=== PATIENT | female | born 1995 | race Caucasian/White ===

== ENCOUNTER → 2016-09-27 | Outpatient (CLI) | payer BC ==
[2016-09-27 14:22] LABS: ABSOLUTE EOSINOPHILS # (AUTO) 0.5 10^3/uL (0.0-0.6); ABSOLUTE LYMPHOCYTES (AUTO) 1.8 10^3/uL (0.5-4.7); ABSOLUTE MONOCYTES (AUTO) 0.8 10^3/uL (0.1-1.4); ABSOLUTE NEUT (AUTO) 5.1 10^3/uL (1.7-8.2); BASOPHILS % (AUTO) 0.5 % (0-2); EOSINOPHILS % (AUTO) 6.3 % (0-6); HEMATOCRIT 39.5 % (36.0-47.0); HEMOGLOBIN 13.3 g/dL (12.0-15.5); HGB HCT DIFFERENCE 0.4; LYMPHOCYTES % (AUTO) 22.1 % (13-45); MEAN CORPUSCULAR HEMOGLOBIN 27.7 pg (27.0-33.4); MEAN CORPUSCULAR HGB CONC 33.7 g/dL (32.0-36.0); MEAN CORPUSCULAR VOLUME 82 fl (80-97); MONOCYTES % (AUTO) 9.1 % (3-13); RED BLOOD COUNT 4.81 10^6/uL (3.72-5.28); RED CELL DISTRIBUTION WIDTH 13.4 % (11.5-14.0); WHITE BLOOD COUNT 8.3 10^3/uL (4.0-10.5)
--- NOTE | 2016-09-27 14:26 | RADIOLOGY REPORT (SQ) ---
EXAM DESCRIPTION: CHEST PA/LATERAL COMPLETED DATE/TIME: 09/27/2016 2:14 pm REASON FOR STUDY: COUGH COMPARISON: None. EXAM PARAMETERS: NUMBER OF VIEWS: two views TECHNIQUE: Digital Frontal and Lateral radiographic views of the chest acquired. RADIATION DOSE: NA LIMITATIONS: none FINDINGS: LUNGS AND PLEURA: No opacities, masses or pneumothorax. No pleural effusion. MEDIASTINUM AND HILAR STRUCTURES: No masses or contour abnormalities. HEART AND VASCULAR STRUCTURES: Heart normal size. No evidence for failure. BONES: No acute findings. HARDWARE: None in the chest. OTHER: No other significant finding. IMPRESSION: NO SIGNIFICANT RADIOGRAPHIC FINDING IN THE CHEST. TECHNICAL DOCUMENTATION: JOB ID: [id number] [employer]- All Rights Reserved
[2016-09-27 14:50] LABS: ALANINE AMINOTRANSFERASE 26 U/L (9-52); ALBUMIN 4.3 g/dL (3.5-5.0); ALKALINE PHOSPHATASE 80 U/L (38-126); ANION GAP 13 (5-19); ASPARTATE AMINO TRANSFERASE 19 U/L (14-36); BILIRUBIN,DIRECT 0.4 mg/dL (0.0-0.4); BILIRUBIN,TOTAL 0.8 mg/dL (0.2-1.3); BLOOD UREA NITROGEN 10 mg/dL (7-20); CALCIUM 9.3 mg/dL (8.4-10.2); CARBON DIOXIDE 27 mmol/L (22-30); CHLORIDE 102 mmol/L (98-107); CREATININE RESULT 0.68 mg/dL (0.52-1.25); GLUCOSE 87 mg/dL (75-110); POTASSIUM 4.1 mmol/L (3.6-5.0); SODIUM 141.6 mmol/L (137-145); TOTAL PROTEIN 7.3 g/dL (6.3-8.2)
--- NOTE | 2016-09-27 20:03 | EKG REPORT ---
SEVERITY:- NORMAL ECG - SINUS RHYTHM : Confirmed by: Elliot Sorensen MD 27-Sep-2016 20:03:12
== END ==
LOC: OD 13:44
PROVIDERS: ATTEND Nurse Practitioner Family
DX: R42 Dizziness and giddiness (principal); R05 Cough; R63.4 Abnormal weight loss
CPT/HCPCS: 36415; 71020; 80053; 84443; 85025; 93005; 93010

== ENCOUNTER 2017-07-09 20:10 | Outpatient (CLI) | payer BC ==
[2017-07-09 21:09] LABS: APPEARANCE,URINE SLIGHTLY-CLOUDY; BILIRUBIN,URINE NEGATIVE (NEGATIVE); COLOR,URINE STRAW; GLUCOSE, URINE NEGATIVE (NEGATIVE); KETONES,URINE NEGATIVE (NEGATIVE); LEUKOCYTE ESTERASE,URINE TRACE (NEGATIVE); NITRITE,URINE NEGATIVE (NEGATIVE); PROTEIN,URINE NEGATIVE (NEGATIVE); URINE SPECIFIC GRAVITY 1.004; UROBILINOGEN,URINE NEGATIVE mg/dL (<2.0)
[2017-07-09 21:25] LABS: URINE AMPHETAMINES SCREEN NEGATIVE; URINE BARBITURATES SCREEN NEGATIVE; URINE BENZODIAZEPINES SCREEN NEGATIVE; URINE COCAINE SCREEN NEGATIVE; URINE MARIJUANA (THC) SCREEN NEGATIVE; URINE METHADONE SCREEN NEGATIVE
[2017-07-09 21:41] LABS: URINE PHENCYCLIDINE SCREEN NEGATIVE
== END 2017-07-09 21:31 | disposition home or self-care (01) ==
LOC: LC 20:10
PROVIDERS: ATTEND Obstetrics & Gynecology
PROC: 4A1HXCZ Monitoring of Products of Conception, Cardiac Rate, External Approach (ICD-10-PCS; principal; 2017-07-09)
DX: O26.893 Other specified pregnancy related conditions, third trimester (principal); R10.2 Pelvic and perineal pain; Z3A.28 28 weeks gestation of pregnancy
CPT/HCPCS: 80307; 81001

== ENCOUNTER 2017-10-03 11:06 | Inpatient (IN) | payer BC ==
[2017-10-03] MEDS ORDERED: RINGERS SOLUTION,LACTATED 1,000 ML IV ONE (11:10)
[2017-10-03] MEDS ORDERED: OXYTOCIN/NORMAL SALINE 20 UNIT/1,000 ML RTUINJ IV PRN ×2 (11:12→13:39)
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
[2017-10-03] MEDS ORDERED: OXYTOCIN/NORMAL SALINE 20 UNIT/1,000 ML RTUINJ ONE (11:43)
[2017-10-03 12:03] LABS: ABSOLUTE EOSINOPHILS # (AUTO) 0.1 10^3/uL (0.0-0.6); ABSOLUTE LYMPHOCYTES (AUTO) 2.2 10^3/uL (0.5-4.7); ABSOLUTE MONOCYTES (AUTO) 0.8 10^3/uL (0.1-1.4); BASOPHILS % (AUTO) 0.2 % (0-2); EOSINOPHILS % (AUTO) 1.1 % (0-6); HEMATOCRIT 36.2 % (36.0-47.0); HEMOGLOBIN 12.1 g/dL (12.0-15.5); LYMPHOCYTES % (AUTO) 16.9 % (13-45); MEAN CORPUSCULAR HEMOGLOBIN 26.6 pg (27.0-33.4); MEAN CORPUSCULAR HGB CONC 33.5 g/dL (32.0-36.0); MEAN CORPUSCULAR VOLUME 79 fl (80-97); MONOCYTES % (AUTO) 5.8 % (3-13); PLATELET COUNT 189 10^3/uL (150-450); RED BLOOD COUNT 4.56 10^6/uL (3.72-5.28); RED CELL DISTRIBUTION WIDTH 13.9 % (11.5-14.0); TOTAL CELLS COUNTED % (AUTO) 100 %; WHITE BLOOD COUNT 13.2 10^3/uL (4.0-10.5)
[2017-10-03 12:09] LABS: APPEARANCE,URINE CLEAR; BILIRUBIN,URINE NEGATIVE (NEGATIVE); COLOR,URINE YELLOW; GLUCOSE, URINE NEGATIVE (NEGATIVE); KETONES,URINE NEGATIVE (NEGATIVE); LEUKOCYTE ESTERASE,URINE TRACE (NEGATIVE); NITRITE,URINE NEGATIVE (NEGATIVE); PROTEIN,URINE NEGATIVE (NEGATIVE); URINE SPECIFIC GRAVITY 1.009; UROBILINOGEN,URINE NEGATIVE mg/dL (<2.0)
[2017-10-03 12:26] LABS: URINE AMPHETAMINES SCREEN NEGATIVE; URINE BARBITURATES SCREEN NEGATIVE; URINE BENZODIAZEPINES SCREEN NEGATIVE; URINE COCAINE SCREEN NEGATIVE; URINE MARIJUANA (THC) SCREEN NEGATIVE; URINE METHADONE SCREEN NEGATIVE; URINE PHENCYCLIDINE SCREEN NEGATIVE
[2017-10-03] MEDS ORDERED: LIDOCAINE 1% INJ-PF (10 MG/ML) 30 ML SDV ONE (12:39)
[2017-10-03] MEDS ORDERED: MISOPROSTOL 0.2 MG TABLET ONE (12:39)
[2017-10-03] MEDS ORDERED: MORPHINE SULFATE 10 MG/ML INJ ONE (13:29)
[2017-10-03] MEDS ORDERED: ZOLPIDEM TARTRATE 5 MG TABLET PO PRN (13:39)
[2017-10-03] MEDS ORDERED: MEASLES,MUMPS&RUBELLA VACC/PF 0.5 ML VIAL SUBCUT PRN ×2 (13:39→15:00)
[2017-10-03] MEDS ORDERED: BENZOCAINE/MENTHOL AEROSOL SPRAY 56 ML TOP PRN (13:39)
[2017-10-03] MEDS ORDERED: DIPH/PERTUSS(ACELL)/TETANUS VAC/PF 0.5 ML SYR (>=10YO) IM PRN ×2 (13:39→15:00)
[2017-10-03] MEDS ORDERED: DIBUCAINE 1% OINTMENT 28 GM TP PRN (13:39)
[2017-10-03] MEDS ORDERED: ACETAMINOPHEN WITH CODEINE #3 TABLET PO PRN ×2 (13:39)
--- NOTE | 2017-10-03 14:03 | L&D Progress Notes ---
PROGRESS NOTES Datetime Report Generated by CPN: 10/03/2017 14:03 PROGRESS NOTE Comment: called to bedside to evaluate bleeding, vagina inspected no lacerations noted, small placetnal fragments manually removed good hemostasis after will give dose of unaysn and monitor VAGINAL EXAM Dilatation: 6 Effacement: 80 Station: 1 Contractions: irreg. MEMBRANES Membranes: Intact FETUS A Estimated Weight (gm): 3300 Presentation: Vertex SIGNATURE SIGNATURE: [id number] SIGNATURE: [id number] Assignment: Greyson Abraham MD Signature: with User ID: [email or web address] : with User ID: [email or web address]
[2017-10-03] MEDS ORDERED: AMPICILLIN SOD/SULBACTAM 3 GM VIAL IV ONE (14:08)
[2017-10-03] MEDS ORDERED: MORPHINE SULFATE 10 MG/ML INJ IV ONE (14:09)
[2017-10-03] MEDS ORDERED: AMPICILLIN SOD/SULBACTAM 3 GM VIAL ONE (14:13)
--- NOTE | 2017-10-03 16:03 | Delivery Summary ---
Del Sum A-C Datetime Report Generated by CPN: 10/03/2017 16:03 DELIVERY PERSONNEL DELIVERY PERSONNEL: [id number] Delivery Doctor:: Ariana Snowden CNM Labor and Delivery Nurse:: Chandni Huynh RN Labor and Delivery Nurse:: ERASMO Goldman Eyeglass Maker/VP PRODUCT MANAGEMENT: Hilary Lynch, ST Additional Personnel: : Steve Castillo RN MATERNAL INFORMATION Delivery Anesthesia: None Medications After Delivery: Pitocin Bolus-Please Comment; Pitocin Drip 20 Units/1000ml NSS; Other-Please Comment Meds After Delivery Comment: 1000 mcg cytotec AR Estimated Blood Loss (ml): 548 Maternal Complications: Precipitous Labor (<3hrs) Provider Comments: of viable female infant, head, shoulders, and body delivered without difficulty, infant with spontaneous cry and respirations, to maternal abdomen, cord clamped X2 and infant cut free after 2 min delay, cord avulsed with very minimal traction, placetna manually removed, vagina and perineum inspected, 1st degree perineal laceration repaired as above, heavier bleeding, 1000mcg rectal cytotec given, better hemostasis acheived with external fundal massage and IV pitocin, mother and in stable condition, routine pp care LABOR SUMMARY EDC: 10/02/2017 00:00 No. Babies in Womb: 1 Attempted: No Labor Anesthesia: None LABOR INFORMATION Reason for Induction: Not Applicable Onset of Labor: 10/03/2017 13:00 Complete Dilatation: 10/03/2017 13:04 Other Ripening Agents: 5-7 Oxytocin: Augmentation Group B Beta Strep: Negative Steroids Given: None Reason Steroids Not Administered: Not Applicable MEMBRANES Membranes Rupture Method: Artificial Rupture of Membranes: 10/03/2017 12:05 Length of Rupture (hr): 1.05 Amniotic Fluid Color: Clear Amniotic Fluid Amount: Small Amniotic Fluid Odor: Normal STAGES OF LABOR Stage 1 hr: 0 Stage 1 min: 4 Stage 2 hr: 0 Stage 2 min: 4 Stage 3 hr: 0 Stage 3 min: 6 Total Time in Labor hr: 0 Total Time in Labor min: 14 VAGINAL DELIVERY Episiotomy: None Laceration #1: Perineal Laceration Extension #1: First Degree Laceration Repair: Yes Laceration Repair Note: repaired with lidocaine using 2-0 chromic Sponge Count Correct: N/A Sharps Count Correct: Yes CSECTION DELIVERY Primary Indication: N/A Secondary Indication: N/A CSection Incidence: N/A Labor: N/A Elective: N/A CSection Incision: N/A BABY A INFORMATION Infant Delivery Date/Time: 10/03/2017 13:08 Method of Delivery: Vaginal Born in Route : No : N/A Forceps: N/A Vacuum Extraction: N/A Shoulder Dystocia : No PRESENTATION/POSITION BABY A Presentation: Cephalic Cephalic Presentation: Vertex Vertex Position: Left Occipital Anterior Breech Presentation: N/A PLACENTA INFORMATION BABY A Placenta Delivery Time : 10/03/2017 13:14 Placenta Method of Delivery: Manual Removal Placenta Status: Delivered SCORES BABY A Heart Rate 1 min: >100 bpm Resp Effort 1 min: Good Cry Reflex Irritability 1 min: Cough or Sneeze or Pulls Away Muscle Tone 1 min: Active Motion Color 1 min: Blue/Pale Resuscitation Effort 1 min: Tactile Stimulation SCORE 1 MIN: 8 Heart Rate 5 min: >100 bpm Resp Effort 5 min: Good Cry Reflex Irritability 5 min: Cough or Sneeze or Pulls Away Muscle Tone 5 min: Active Motion Color 5 min: Body [place], Extremities Blue Resuscitation Effort 5 min: N/A SCORE 5 MIN: 9 Resuscitation Effort 10 min: N/A INFORMATION BABY A Gestational Age at Delivery: 40.1 Gestational Status: Full Term- 39- 40.6 Weeks Outcome : Liveborn Infant Condition : Stable Sex: Female IDENTIFICATION BABY A Verification Date/Time: 10/03/2017 13:34 ID Band Number: [id number] Mother's Name Verified: Yes Infant RN Verifying Infant: A Hickman RN R Alfred RN WEIGHT/LENGTH BABY A Birthweight (gm): 3195 Infant Weight (lb): 7 Weight (oz): 1 Infant Length (in): 19.00 Infant Length (cm): 48.26 CORD INFORMATION BABY A No. Cord Vessels: 3 Nuchal Cord : N/A Cord Blood Taken: Yes-For Eval (Mom's Blood Type - or O+) Infant Suction: Mouth; Nose ASSESSMENT BABY A Infant Complications: None Physical Findings at Delivery: Within Normal Limits Infant Respirations: Appears Normal Skin to Skin: Yes Skin to Skin Time (min): 60 Examination Proctor/ALS Called : No Infant Care By: K Dave RNC/J Anna RN Transferred To: Remains with Mother BABY B INFORMATION : N/A SIGNATURES Assignment: Greyson Abraham MD Signature: with User ID: [email or web address] : with User ID: [email or web address]
[2017-10-03] MEDS: IBUPROFEN 800 MG TABLET PO SCH ×2 (17:44→21:30)
[2017-10-03] MEDS: FERROUS SULFATE 325 MG TABLET PO SCH (18:34)
[2017-10-03] MEDS: DOCUSATE SODIUM 100 MG CAPSULE PO SCH (18:34)
[2017-10-04] MEDS: IBUPROFEN 800 MG TABLET PO SCH ×3 (05:58→22:23)
[2017-10-04 07:30] LABS: HEMATOCRIT 28.4 % (36.0-47.0); MEAN CORPUSCULAR HEMOGLOBIN 26.9 pg (27.0-33.4); MEAN CORPUSCULAR HGB CONC 33.9 g/dL (32.0-36.0); MEAN CORPUSCULAR VOLUME 79 fl (80-97); PLATELET COUNT 158 10^3/uL (150-450); RED BLOOD COUNT 3.58 10^6/uL (3.72-5.28); RED CELL DISTRIBUTION WIDTH 14.2 % (11.5-14.0); WHITE BLOOD COUNT 13.9 10^3/uL (4.0-10.5)
[2017-10-04 07:33] LABS: HEMOGLOBIN 9.6 g/dL (12.0-15.5)
--- NOTE | 2017-10-04 08:51 | PDOC PROGRESS REPORT ---
Subjective-OB Progress Note for:: 10/04/17 Physical Exam (OB) Vital Signs: Temp Pulse Resp BP Pulse Ox 97.9 F 89 16 116/68 100 10/04/17 08:01 10/04/17 08:01 10/04/17 08:01 10/04/17 08:01 10/04/17 08:01 Intake & Output 10/03/17 10/04/17 10/05/17 06:59 06:59 06:59 Intake Total 300 Balance 300 Weight 66.7 kg - Lochia Lochia Amount: Small 10-25 ml Lochia Color: Rubra/Red - Abdomen Description: Tender, Soft Hernia Present: No Bowel Sounds: Normoactive Flatus Presence: Present Stool: Yes Fundal Description: Firm, Midline Fundal Height: u/u - u/2 Objective-Diagnostic Laboratory: 10/04/17 07:09 10/03/17 10/03/17 10/03/17 11:15 11:35 11:35 WBC 13.2 H RBC 4.56 Hgb 12.1 Hct 36.2 MCV 79 L MCH 26.6 L MCHC 33.5 RDW 13.9 Plt Count 189 Seg Neutrophils % 76.0 Lymphocytes % 16.9 Monocytes % 5.8 Eosinophils % 1.1 Basophils % 0.2 Absolute Neutrophils 10.0 H Absolute Lymphocytes 2.2 Absolute Monocytes 0.8 Absolute Eosinophils 0.1 Absolute Basophils 0.0 Urine Color YELLOW Urine Appearance CLEAR Urine pH 6.0 Ur Specific [place] 1.009 Urine Protein NEGATIVE Urine Glucose (UA) NEGATIVE Urine Ketones NEGATIVE Urine Blood NEGATIVE Urine Nitrite NEGATIVE Ur Leukocyte Esterase TRACE H Blood Type O POSITIVE Antibody Screen NEGATIVE 10/04/17 07:09 WBC 13.9 H RBC 3.58 L Hgb 9.6 L D Hct 28.4 L MCV 79 L MCH 26.9 L MCHC 33.9 RDW 14.2 H Plt Count 158 Seg Neutrophils % Lymphocytes % Monocytes % Eosinophils % Basophils % Absolute Neutrophils Absolute Lymphocytes Absolute Monocytes Absolute Eosinophils Absolute Basophils Urine Color Urine Appearance Urine pH Ur Specific [place] Urine Protein Urine Glucose (UA) Urine Ketones Urine Blood Urine Nitrite Ur Leukocyte Esterase Blood Type Antibody Screen
[2017-10-04] MEDS: SENNOSIDES/DOCUSATE 8.6-50 MG 1 EACH TABLET PO SCH (10:09)
[2017-10-04] MEDS: PRENATAL VITAMIN W DHA CAPSULE PO SCH (10:09)
[2017-10-04] MEDS: DOCUSATE SODIUM 100 MG CAPSULE PO SCH ×2 (10:09→17:15)
[2017-10-04] MEDS: FERROUS SULFATE 325 MG TABLET PO SCH ×2 (10:09→17:15)
[2017-10-05] MEDS: IBUPROFEN 800 MG TABLET PO SCH ×2 (06:28→17:07)
[2017-10-05 07:47] VITALS: BP 114/75
[2017-10-05] MEDS: FERROUS SULFATE 325 MG TABLET PO SCH ×2 (09:56→17:07)
[2017-10-05] MEDS: SENNOSIDES/DOCUSATE 8.6-50 MG 1 EACH TABLET PO SCH (09:57)
[2017-10-05] MEDS: DOCUSATE SODIUM 100 MG CAPSULE PO SCH ×2 (09:57→17:07)
[2017-10-05] MEDS: PRENATAL VITAMIN W DHA CAPSULE PO SCH (09:57)
--- NOTE | 2017-10-05 10:49 | PDOC DISCHARGE SUMMARY ---
Final Diagnosis Discharge Date: 10/05/17 - Final Diagnosis (1) Normal vaginal delivery Is this a current diagnosis for this admission?: Yes Discharge Data - Discharge Medication Prescriptions: Ferrous Sulfate [Feosol 325 mg Tablet] 325 mg PO BID #60 tablet Ibuprofen [Motrin 800 mg Tablet] 800 mg PO Q8 #90 tablet Home Medications: Comb No.42/Folic Acid [Prena1 Chew Tablet] 1.4 mg PO DAILY #30 tab.ch.bph 04/22/15 Ferrous Sulfate [Feosol 325 mg Tablet] 325 mg PO BID #60 tablet 10/05/17 Ibuprofen [Motrin 800 mg Tablet] 800 mg PO Q8 #90 tablet 10/05/17 Procedures: NST Intrapartum Procedure(s): Spontaneous Vaginal Delivery - Diagnosis Test Laboratory: Temp Pulse Resp BP Pulse Ox 98.5 F 93 16 114/75 100 10/05/17 10:25 10/05/17 10:25 10/05/17 10:25 10/05/17 10:25 10/05/17 10:25 10/03/17 10/03/17 10/04/17 11:15 11:35 07:09 RBC 4.56 3.58 L Hgb 12.1 9.6 L D Hct 36.2 28.4 L Urine Opiates Screen NEGATIVE - Discharge information/Instructions Discharge Activity: Balance Activity w/Rest, Pelvic Rest Discharge Diet: Regular Disposition: HOME, SELF-CARE Follow up with: [facility] in: 4, Weeks
== END 2017-10-05 17:45 | disposition home or self-care (01) | DRG 774 ==
LOC: LC 11:06 → LR 11:08 → 2S 15:18
PROVIDERS: ADMIT Obstetrics & Gynecology Gynecology; ATTEND Obstetrics & Gynecology Gynecology
PROC: 10E0XZZ Delivery of Products of Conception, External Approach (ICD-10-PCS; principal; 2017-10-03)
PROC: 0HQ9XZZ Repair Perineum Skin, External Approach (ICD-10-PCS; 2017-10-03)
PROC: 10907ZC Drainage of Amniotic Fluid, Therapeutic from Products of Conception, Via Natural or Artificial Opening (ICD-10-PCS; 2017-10-03)
PROC: 4A1HXCZ Monitoring of Products of Conception, Cardiac Rate, External Approach (ICD-10-PCS; 2017-10-03)
DX: O62.3 Precipitate labor (principal); O44.03 Complete placenta previa NOS or without hemorrhage, third trimester; O70.0 First degree perineal laceration during delivery; Z3A.40 40 weeks gestation of pregnancy; Z37.0 Single live birth
CPT/HCPCS: 36415; 80307; 81005; 85025; 85027; 86592; 86850; 86900; 86901; J0295; J2270; J2590; J3490